=== PATIENT | male | born 1960 | race Caucasian/White ===

== ENCOUNTER 2016-11-03 22:38 | Inpatient (IN) | payer BC ==
[~2016-11-03] VITALS: Ht 162.6 cm; Wt 84.4 kg
--- NOTE | ~2016-11-03 | HP ---
ADMIT: 11/03/2016 RM/LOC: ER [facility] MR#: [id number] [address] [address] THEO NG [address] [place] [address] Pre-OP History and Physical SEX: M AGE: 56 : 1960 DATE OF SERVICE: DATE OF PLANNED SURGERY: 11/04/2016 HISTORY OF PRESENT ILLNESS: This patient is a 56-year-old male, who has a history of a Carlota-En-Y gastric bypass back in October of 2004, 12 years ago. He has lost some weight but at this point, he comes in after a couple day history actually of not feeling well. Thought he was suffering from kidney stones that he has had in the past with bad back pain, vomiting, not keeping much down anything; he drinks, he said it comes up, presents to the ER here. They did a CT scan that was noncontrast, had been looking for kidney stones, but looks like he has probably got an internal hernia and an obstruction secondary to that. At this point, I told him that if this has just started, to be one thing, but he is getting the classic waves on and off of obstructive type symptoms and sitting on him and waiting is not advisable. We need to go to the operating room for exploratory laparotomy. Hopefully, just reduction of this internal hernia and then a closure of the defect. There is a possibility we would have to do some bowel resection depending on what the bowel looks like. I have discussed this with him. He understands and wished to proceed. PAST MEDICAL HISTORY: Significant for depression for the above morbid obesity and previous surgery. He has had, I believe a shoulder surgery, knee surgery, and kidney stones. He takes some medication for tremors I believe he says, and depression. ALLERGIES: HE HAS AN ALLERGY TO PENICILLIN, HE SAYS ORAL PENICILLIN. SOCIAL HISTORY: He denies tobacco, alcohol, or illicit drugs. He does chew some tobacco. FAMILY HISTORY: Noncontributory. REVIEW OF SYSTEMS: As above for his GI symptoms. ADMIT: 11/03/2016 RM/LOC: AYDEE [facility] MR#: [id number] [address] [address] HERNANDEZTHEO Nolberto [address] [place] [address] Pre-OP History and Physical SEX: M AGE: 56 : 1960 PHYSICAL EXAMINATION: GENERAL: He is alert. He is oriented. He is in some mild distress. HEENT: His sclerae are nonicteric. His extraocular muscles are intact. CHEST: Clear. HEART: Regular rate and rhythm. ABDOMEN: Soft, nondistended. Pain to palpation, but no diffuse peritoneal signs. He does have positive bowel sounds. EXTREMITIES: Without any clubbing, cyanosis, or edema. ASSESSMENT AND PLAN: Plan exploratory laparotomy, reduction of hernia, and possible bowel resection, repair of this hernia defect. Zhao Blancas MD/ luis JOB #: [id number] CC: Chivo Loja, Attending Physician UNKNOWN, Family Physician
--- NOTE | 2016-11-04 06:45 | ER ---
ADMIT: 11/04/2016 RM/LOC: 509 [facility] MR#: [id number] [address] [facility] [address] [place] [id number] THEO NG [address] [place] [address] Emergency Room Report SEX: M AGE: 56 : 1960 DATE: 11/03/2016 CHIEF COMPLAINT: Back pain. HISTORY OF PRESENT ILLNESS: The patient is a 56-year-old male with known renal colic. States he has had intermittent back and flank pain associated with nausea and vomiting for the past 24 hours. Got much better this morning, was eating. Had increased pain after supper tonight. Last status 7:00 p.m. sandwich and diet pop at 8:00 p.m. States he has thrown up 12-13 times since last night. Last bowel movement was 9:30 this morning, described as normal. Denies any hematemesis or melena. The patient is status post Carlota-en-Y procedure many years ago by Dr. Mckinley. Lost and sustained 140 pounds. PAST MEDICAL HISTORY: ILLNESSES: Kidney stones. OPERATIONS: Carlota-en-Y, right knee arthroscopy, right rotator cuff with Kelly procedure. ALLERGIES: PENICILLIN. MEDICATIONS: Please see nurse's MAR. SOCIAL HISTORY: , nonsmoker, nondrinker. No illicit drugs. FAMILY HISTORY: Negative per chart review. REVIEW OF SYSTEMS: A 12-point review of systems negative for all other systems, illnesses, or operations except as outlined above. PHYSICAL EXAMINATION: VITAL SIGNS: Temp 97.4, pulse 58, respirations 15, BP 120/72, SaO2 of 100%. GENERAL: Anxious, moderate distress, nontoxic, non-diaphoretic. HEENT: Normocephalic. No evidence of epistaxis, rhinorrhea, or otorrhea. NECK: Supple without lymphadenopathy or thyromegaly. CHEST: Clear. Breath sounds equal without rales, rhonchi, or wheeze. HEART: Regular rate and rhythm without murmur, gallop, or edema. ABDOMEN: Soft, minimally tender diffusely without mass or megaly. Bowel sounds hypoactive. BACK: No CVA tenderness. EXTREMITIES: No evidence of Homans sign, synovitis, or dermatitis. NEURO: EOMI. PERRLA. No evidence of drift, dysarthria, or ataxia. Gait normal. MEDICAL DECISION MAKING: CT renal shows internal hernia with mesenteric edema consistent with ischemia. Urinalysis pending. WBC 12.4, CRP 0.33, lactic 1.6, lipase 3215. Remainder of chemistries unremarkable. The patient was given 1 L of fluid, Zofran, Toradol, Dilaudid with improvement. Discussed findings with ADMIT: 11/04/2016 RM/LOC: 509 [facility] MR#: [id number] [address] [address] THEO NG [facility] [place] [address] Emergency Room Report SEX: M AGE: 56 : 1960 Dr[address] Blancas, who evaluated and took the patient to surgery emergently. Due to patient's presentation, findings, and intervention, 30 minutes of critical care is warranted. DIAGNOSIS: Internal hernia associated with volvulus. RECOMMENDATION: NPO, emergent surgery. Chivo Loja MD/ luis JOB #: [id number] CC: Zhao Blancas MD, Attending Physician Zhao Blancas MD, Family Physician MD Zhao Blanchard MD
[2016-11-09] MEDS ORDERED: ZOLOFT DPS50 MG PO (19:11)
[2016-11-09] MEDS ORDERED: MYSOLINE50 MG PO (19:11)
[2016-11-09] MEDS ORDERED: THERAPEUTIC MUL1 TAB PO ×2 (19:12)
[2016-11-09] MEDS ORDERED: OMEGA-3 DPS1000 MG PO ×2 (19:12)
[2016-11-09] MEDS ORDERED: ATIVAN-DPS0.5 MG PO (19:13)
[2016-11-09] MEDS ORDERED: TYLENOL #3 DPS1 TAB PO (19:13)
[2016-11-09] MEDS ORDERED: FLEXERIL DPS5 MG PO (19:14)
--- NOTE | 2016-11-13 16:25 | OR ---
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 PROCEDURE: Exploratory laparotomy. Reduction of internal hernia, Rocha hernia and then closure of the defect. BROOMCORN SEEDER: LASHELL He who was necessary for adequate exposure, retraction, and completion of this case. ANESTHESIA: General endotracheal tube anesthesia. ESTIMATED BLOOD LOSS: 50 mL or less. INDICATION FOR PROCEDURE: Please see H and P. DESCRIPTION OF THE PROCEDURE: After the risks, benefits, possible complications, and alternatives had been explained and informed consent had been obtained, the patient was taken back to the operating room. Underwent general endotracheal tube anesthesia and the surgical field was prepped and draped in a sterile manner. Midline incision was made down to skin and subcutaneous tissue. The abdominal cavity was entered through the fascia and opened for the length of the incision. Once that was done, started off identifying terminal ilium in the cecum and started tracing things backwards, unwinding this in a clockwise fashion around the Rocha defect. Once I got all the bowel out of there, it was all decompressed distally some of this bowel, but then when we got the bowel where it was obstructed, there was no doubt it was dilated up. We reduced all this, got everything lied back the way it is supposed to be, identifying the Carlota limb going up to the gastric pouch. Did not see any other adhesions or blockages there. Transverse colon, the jejunostomy and then the pancreatic or biliary limb coming down and no ADMIT: 11/04/2016 RM/LOC: 509 [facility] MR#: [id number] [address] [address] THEO NG [address] [place] [address] Operative/Delivery Room Report SEX: M AGE: 56 : 1960 doubt there was a Rocha defect there. I ran this 2 different times making sure I saw no other significant adhesions or defects, then used some interrupted [id number] silks to close down this defect. Once I felt I had adequately closed, he had the typical kind of white chylous-type ascites that you see when these are obstructed. Washed and irrigated that out as much as possible. Like I said, had the defect closed, ran the bowel a couple of times from beginning to end. The anastomosis was good and patent. Things were moving through there decently, and I closed the fascia then with a running loop PDS superiorly and inferiorly, tying in the middle. [place] for skin. We did put some simone in, bandages were applied. He tolerated it well. He was being extubated when I left the room. He was in stable and satisfactory condition. Zhao Blancas MD/ luis JOB #: [id number] CC: Zhao Blancas, Attending Physician Zhao Blancas, Family Physician
--- NOTE | 2016-11-24 19:20 | DS ---
ADMIT: 11/04/2016 RM/LOC: 509 [facility] MR#: [id number] ACC#: [id number] 2620 [facility] [address] [place] [id number] THEO NG [address] [place] [address] Discharge Summary SEX: M AGE: 56 : 1960 ADMISSION DATE: 11/04/2016 DISCHARGE DATE: 11/07/2016 ADMITTING DIAGNOSIS: History of previous Carlota-en-Y gastric bypass with David hernia. DISMISSAL DIAGNOSES: 1. David hernia, history of previous Carlota-en-Y gastric bypass. 2. Depression. 3. Morbid obesity. 4. Previous shoulder and knee surgery. 5. Nephrolithiasis. 6. Tremors. PROCEDURES: Exploratory laparotomy with reduction of internal hernia and closure of David hernia. HOSPITAL COURSE: The patient was seen in the Emergency Department and went directly to surgery. Afterwards, the patient transferred to the floor without any complications. He was admitted as an inpatient with routine med/surg orders. He was given a morphine DIVISION SUPERINTENDENT for pain control. Overall, the patient recovered well while in the hospital. His pain was controlled, and he was ambulating well. He was weaned off his morphine DIVISION SUPERINTENDENT and was tolerating oral pain medications. He tolerated advanced diet and had normal return of his bowel function. Bowels remained stable, and his lab work was all okay. He was able to discharge to home on 11/07/2016. DISCHARGE INSTRUCTIONS: 1. No lifting greater than 20 pounds for 4 weeks. 2. Follow up with Dr. Blancas November 14. DISCHARGE MEDICATION LIST: 1. Primidone 200 mg b.i.d. 2. Sertraline 50 mg at bedtime. 3. Multivitamin daily a.m. 4. Alternative multivitamin 2 tabs in the evening. 5. Fish oil. 1000 mg 2 tabs in the morning and 1 in the evening. 6. Lorazepam 0.5 mg daily p.r.n. 7. Tylenol #3, 1-2 tabs q.4-6 hours p.r.n. 8. Flexeril 5 mg q.6h p.r.n. LASHELL He / Zhao Blancas MD / ajf JOB #: [id number] CC: Zhao Blancas MD, Attending Physician Zhao Blancas MD, Family Physician
== END 2016-11-07 10:55 | disposition home or self-care (01) | DRG 355 ==
LOC: ER 22:38 → SSS 11-04 00:22 → 5MS 11-04 03:29
PROVIDERS: ADMIT Surgery
PROC: 0WQF0ZZ Repair Abdominal Wall, Open Approach (ICD-10-PCS; principal; 2016-11-04)
DX: K45.0 Other specified abdominal hernia with obstruction, without gangrene (principal); I89.8 Other specified noninfective disorders of lymphatic vessels and lymph nodes; F32.9 Major depressive disorder, single episode, unspecified; E66.9 Obesity, unspecified; G25.0 Essential tremor; G47.30 Sleep apnea, unspecified; F17.220 Nicotine dependence, chewing tobacco, uncomplicated; Z98.84 Bariatric surgery status; Z68.32 Body mass index [BMI] 32.0-32.9, adult